=== PATIENT | male | born 1980 | race Caucasian/White ===

== ENCOUNTER 2017-10-20 02:28 | Emergency (ER) | payer BC, OTHER ==
[~2017-10-20] VITALS: Ht 172.7 cm; Wt 100.4 kg
[2017-10-20 02:30] VITALS: Ht 172.7 cm; Wt 100.4 kg
[2017-10-20] MEDS ORDERED: KETOROLAC TROMETHAMINE 30 MG/ML VIAL IV STA (02:48)
[2017-10-20] MEDS ORDERED: ONDANSETRON INJ 2 MG/ML 2 ML VIAL IV STA (02:48)
[2017-10-20] MEDS ORDERED: ACETAMINOPHEN IV 1,000 MG in EMPTY BAG 0 ML IV ONE (03:00)
[2017-10-20] MEDS ORDERED: SODIUM CHLORIDE 0.9% 1000ML 1,000 ML IV ONE (03:00)
[2017-10-20] MEDS ORDERED: ACETAMINOPHEN 1000 MG/100 ML IV IV ONE (03:05)
[2017-10-20 03:23] LABS: BASO % 0.2 %; BASO ABS # 0.03 K/uL (0-0.2); EOS % 1.6 %; EOS ABS # 0.21 K/uL (0-0.5); HEMATOCRIT 43.9 % (42-52); HEMOGLOBIN 15.6 g/dL (14.0-18.0); IG# 0.06 K/uL (0.00-0.02); LYMPH % 9.4 %; LYMPH ABS # 1.24 K/uL (1.2-3.4); MEAN CELL VOLUME 86.1 fL (80-100); MEAN CORPUSCULAR HEMOGLOBIN 30.6 pg (25-34); MEAN CORPUSCULAR HGB CONC 35.5 g/dl (32-36); MEAN PLATELET VOLUME 8.9 fL (7.4-10.4); MONO % 7.4 %; MONO ABS # 0.98 K/uL (0.11-0.59); NEUT % 80.9 %; NEUT ABS # 10.68 K/uL (1.4-6.5); PLATELET COUNT 265 K/uL (130-400); RED CELL DISTRIBUTION WIDTH CV 12.1 % (11.5-14.5); RED CELL DISTRIBUTION WIDTH SD 38.2 fL (36.4-46.3)
[2017-10-20 03:40] LABS: CALCIUM 8.8 mg/dl (8.5-10.1); CREATININE 1.17 mg/dl (0.60-1.40); POTASSIUM 3.7 mmol/L (3.5-5.1)
[2017-10-20 03:42] LABS: INFLUENZA B ANTIGEN Neg for Influ B (NEG)
[2017-10-20 03:51] LABS: TOTAL PROTEIN 7.4 gm/dl (6.4-8.2)
[2017-10-20 04:34] VITALS: TEMP 36.9
[2017-10-20 05:02] VITALS: BP 120/68; PULSE 68; O2SAT 94
--- NOTE | 2017-10-20 05:23 | EMERGENCY ROOM VISIT NOTE ---
History First contact with patient: 02:35 Chief Complaint: ILLNESS Stated Complaint: SICK,NAUSEA,NECK/BACK PAIN,FEVER,HEADACHE History of Present Illness The patient is a 37 year old male who presents to the Emergency Room with several complaints. The patient is complaining of nausea, right-sided back pain , intermittent headache, and fatigue for the past 6 or 7 days. He is also complaining of a fever tonight, prompting his presentation. He has been able to eat and drink as normal but is not complaining of distinct chest pain, chest tightness, shortness of breath, or abdominal pain. No numbness or paresthesias. He states that he travels regularly for work, sometimes 6-8 hours in the car. The patient does not have a history of cardiopulmonary disease. No extremity swelling. He has intermittently been taking Advil and Tylenol without significant improvement of symptoms. He describes his pain as a dull 8/10 that does not radiate. Review of Systems More than 10 systems were reviewed and otherwise negative with the exception of history of present illness. Past Medical/Surgical History No pertinent chronic medical disease Family History No pertinent family history Social History Smoking Status: Never Smoker Occupation Status: employed Current/Historical Medications No Active Prescriptions or Reported Meds Physical Exam Vital Signs Date Time Temp Pulse Resp B/P (MAP) Pulse Ox O2 Delivery O2 Flow Rate FiO2 10/20/17 05:02 68 18 120/68 94 Room Air 10/20/17 04:34 36.9 82 16 119/66 95 Room Air 10/20/17 02:30 37.6 117 16 134/74 95 Room Air Physical Exam VITALS: Vitals are noted on the nurse's note and reviewed by myself. Vital signs stable. GENERAL: Well-developed, well-nourished, white male who appears ill. Patient is cooperative with the examination. HEAD: Normocephalic atraumatic. EARS: External ear normal. External auditory canals clear, tympanic membranes pearly cui without erythema or effusion bilaterally. EYES: Pupils equal round and reactive to light and accommodation. Conjunctivae without injection, sclerae without icterus. Extraocular movements intact. NOSE: Patent, turbinates without inflammation or discharge. MOUTH: Mucous membranes moist. Tonsils are not enlarged. Pharynx without erythema, blood, or exudate. Uvula midline. Airway patent. NECK: Supple without nuchal rigidity. No lymphadenopathy. No thyromegaly. Cervical spine is nontender. Patient is with full range of motion of the neck. He is able to place his chin to his chest and look up at the ceiling without difficulty. HEART: Regular rate and rhythm without murmurs gallops or rubs. LUNGS: Clear to auscultation bilaterally without wheezes, rales or rhonchi. No retractions or accessory muscle use. ABDOMEN: Positive normal bowel sounds x 4. Soft, nontender, without masses or organomegaly. No guarding or rebound tenderness. MUSCULOSKELETAL: No muscle atrophy, erythema, or edema noted. Full range of motion without joint tenderness in all extremities. NEURO: Patient was alert and oriented to person place and time. CN II through XII grossly intact. Deep tendon reflexes 2+ throughout. No focal neurological deficits SKIN: The skin was without rashes, erythema, edema, or bruising. Capillary reflex less than 2 seconds. Medical Decision & Procedures ER Provider Diagnostic Interpretation: Preliminary Findings Only See Final Report For Complete Findings CT HEAD: No acute intracranial hemorrhage. No CT evidence of acute infarct. No mass effect or midline shift or hydrocephalus. Mild chronic sinus disease Laboratory Results 10/20/17 03:10 Red Blood Count 5.10, Mean Corpuscular Volume 86.1, Mean Corpuscular Hemoglobin 30.6, Mean Corpuscular Hemoglobin Concent 35.5, Mean Platelet Volume 8.9, Neutrophils (%) (Auto) 80.9, Lymphocytes (%) (Auto) 9.4, Monocytes (%) (Auto) 7.4, Eosinophils (%) (Auto) 1.6, Basophils (%) (Auto) 0.2, Neutrophils # (Auto) 10.68, Lymphocytes # (Auto) 1.24, Monocytes # (Auto) 0.98, Eosinophils # (Auto) 0.21, Basophils # (Auto) 0.03 10/20/17 03:10 Test 10/20/17 02:48 10/20/17 03:02 10/20/17 03:10 10/20/17 03:11 Influenza Type A Antigen Neg for Influ A (NEG) Influenza Type B Antigen Neg for Influ B (NEG) White Blood Count 13.20 K/uL (4.8-10.8) Red Blood Count 5.10 M/uL (4.7-6.1) Hemoglobin 15.6 g/dL (14.0-18.0) Hematocrit 43.9 % (42-52) Mean Corpuscular Volume 86.1 fL (80-100) Mean Corpuscular Hemoglobin 30.6 pg (25-34) Mean Corpuscular Hemoglobin Concent 35.5 g/dl (32-36) Platelet Count 265 K/uL (130-400) Mean Platelet Volume 8.9 fL (7.4-10.4) Neutrophils (%) (Auto) 80.9 % Lymphocytes (%) (Auto) 9.4 % Monocytes (%) (Auto) 7.4 % Eosinophils (%) (Auto) 1.6 % Basophils (%) (Auto) 0.2 % Neutrophils # (Auto) 10.68 K/uL (1.4-6.5) Lymphocytes # (Auto) 1.24 K/uL (1.2-3.4) Monocytes # (Auto) 0.98 K/uL (0.11-0.59) Eosinophils # (Auto) 0.21 K/uL (0-0.5) Basophils # (Auto) 0.03 K/uL (0-0.2) RDW Standard Deviation 38.2 fL (36.4-46.3) RDW Coefficient of Variation 12.1 % (11.5-14.5) Immature Granulocyte % (Auto) 0.5 % Immature Granulocyte # (Auto) 0.06 K/uL (0.00-0.02) Anion Gap 8.0 mmol/L (3-11) Est Creatinine Clear Calc Drug Dose 101.2 ml/min Estimated GFR () 93.1 Estimated GFR (Non- 80.3 BUN/Creatinine Ratio 10.9 (10-20) Calcium Level 8.8 mg/dl (8.5-10.1) Total Bilirubin 0.5 mg/dl (0.2-1) Aspartate Amino Transf (AST/SGOT) 13 U/L (15-37) Alanine Aminotransferase (ALT/SGPT) 35 U/L (12-78) Alkaline Phosphatase 55 U/L (45-117) Total Protein 7.4 gm/dl (6.4-8.2) Albumin 4.0 gm/dl (3.4-5.0) Globulin 3.4 gm/dl (2.5-4.0) Albumin/Globulin Ratio 1.2 (0.9-2) Lipase 137 U/L (73-393) Thyroid Stimulating Hormone (TSH) 1.870 uIu/ml (0.300-4.500) Monoscreen NEG (NEG) Bedside D-Dimer 107 ng/mlFEU (0-450) Bedside Troponin I < 0.030 ng/ml (0-0.045) Test 10/20/17 03:14 Bedside Lactic Acid Venous 1.91 mmol/L (0.90-1.70) Medications Administered Medications (Trade) Dose Ordered Sig/Cristy Route Start Time Stop Time Status Last Admin Dose Admin Sodium Chloride 1,000 ml @ 999 mls/hr Q1H1M ONCE IV 10/20/17 03:00 10/20/17 04:00 DC 10/20/17 03:11 999 MLS/HR Ketorolac Tromethamine (Toradol Inj) 30 mg NOW STAT IV 10/20/17 02:48 10/20/17 02:56 DC 10/20/17 03:12 30 MG Ondansetron HCl (Zofran Inj) 4 mg NOW STAT IV 10/20/17 02:48 10/20/17 02:56 DC 10/20/17 03:11 4 MG Acetaminophen (Ofirmev Iv) 1,000 mg STK-MED ONCE IV 10/20/17 03:05 10/20/17 03:06 DC 10/20/17 03:13 1,000 MG ED Course Physical exam and history were performed. Nursing notes, EMR, and Medication List were personally reviewed. Patient appears to have vague flulike symptoms over the past week that seemed to be worsened today. The patient appears mildly ill on exam, but not toxic. IV access was established and labs were obtained. The patient was hydrated and medicated as above. Lactic acid and cultures were gathered. Influenza swab was performed. Urine collected. The patient's blood work is as above and was reviewed. He does have a slightly elevated white blood count of 13,000. He does not have a gross anemia or significant electrolyte imbalance. His lactic acid is just minimally elevated at 1.9 with cultures pending. Influenza swab is negative. Urine is without obvious signs of infection. Chest x-ray was reviewed by myself and my attending without obvious pneumonia or other significant findings. I did perform a CT scan of the head as the patient is complaining of head pain with his symptoms, and this also returned without significant acute findings. On reevaluation the patient felt significantly improved after hydration, Toradol , Tylenol, and Zofran. He clinically appears much more comfortable, and is currently rating his pain a 4/10. Much of his discomfort remains in his head and neck however. I spent a lengthy amount of time discussing the possibility that the patient's symptoms may represent meningitis, and explained that it would be reasonable to perform a lumbar puncture. After lengthy discussion regarding the risks and benefits of the procedure, the patient expressed desire to defer lumbar puncture. He understands that his symptoms certainly worsen without appropriate diagnosis, and was certainly invited back to the ER if he changes his mind regarding the study. Overall the patient appears ready for discharge home. I am not able to appreciate a distinct source of infection, and his symptoms certainly could be viral in etiology. He has an appointment with his primary care physician in about 8 hours, and I feel it is reasonable that he keep this appointment. He will need close follow-up to ensure improvement of his symptoms. I do recommend a low threshold for return to the ER, at which point lumbar puncture should be considered again. The patient voiced understanding of this and appears reasonable. He rated his discomfort a 3/10 at the time of departure. The chart was completed utilizing [employer] Speech Voice Recognition Software. Grammatical errors, random word insertions, pronoun errors, and incomplete sentences are an occasional consequence of this system due to software limitations, ambient noise, and hardware issues. Any formal questions or concerns about the content, text, or information contained within the body of this dictation should be directly addressed to the provider for clarification. . Medical Decision Differential diagnosis: Etiologies such as viral syndrome, otitis, pharyngitis, pneumonia, influenza, meningitis, urinary tract infection, sepsis, bacteremia, as well as others were entertained. Impression Primary Impression: Flu-like symptoms Departure Information Dispostion Home / Self-Care Condition FAIR Prescriptions No Active Prescriptions or Reported Meds Forms HOME CARE DOCUMENTATION FORM, IMPORTANT VISIT INFORMATION Patient Instructions My [facility] Additional Instructions You were seen and evaluated today on an emergency basis only. This is not a substitute for, or an effort to provide, complete comprehensive medical care. It is not possible to recognize and treat all injuries or illnesses in a single emergency department visit. For this reason it is recommended that you followup with your primary care physician today as scheduled. For baseline pain relief you may alternate ibuprofen and acetaminophen every 4 hours for pain control. Take 600 mg ibuprofen (Advil) and then 4 hours later take 1000 mg acetaminophen (Tylenol). Do not take more than 3000 mg acetaminophen in a single day. Drink plenty of fluids and remain well hydrated. You are welcome to return to the emergency department anytime with new, worsening, or concerning symptoms.
--- NOTE | 2017-10-20 06:31 | DIAGNOSTIC IMAGING REPORT ---
CT OF THE HEAD WITHOUT CONTRAST CLINICAL HISTORY: Headache. Fever. COMPARISON STUDY: No previous studies for comparison. CT DOSE: 614.27 mGy.cm TECHNIQUE: Helical axial images of the head were obtained without IV contrast. Automated exposure control was utilized for the study. A dose lowering technique was utilized adhering to the principles of ALARA. FINDINGS: No acute intracranial hemorrhage, midline shift or mass effect is present. Ventricular system is normal. Basilar cisterns are patent. There are no extra-axial collections. Padilla-white differentiation is maintained. There are no findings to suggest acute dural sinus thrombosis or acute infarct. There are no significant calvarial abnormalities. Mastoid air cells are clear. There is moderate mucosal thickening of the ethmoid sinuses. IMPRESSION: 1. No acute intracranial findings. 2. Moderate ethmoid sinus mucosal thickening. Electronically signed by: Florencio Quiles M.D. 10/20/2017 6:30 AM Dictated Date/Time: 10/20/2017 6:29 AM
--- NOTE | 2017-10-20 06:42 | DIAGNOSTIC IMAGING REPORT ---
CHEST 2 VIEWS ROUTINE HISTORY: 37 years-old Male Fever. Acute fever with cough COMPARISON: None available TECHNIQUE: PA and lateral views of the chest FINDINGS: Cardiomediastinal and hilar silhouettes are within normal limits. No pneumothorax, pleural effusion, focal airspace consolidation or overt pulmonary edema. Bones of the chest appear grossly intact. IMPRESSION: No acute process. The above report was generated using voice recognition software. It may contain grammatical, syntax or spelling errors. Electronically signed by: Dequan Rico M.D. 10/20/2017 6:41 AM Dictated Date/Time: 10/20/2017 6:40 AM
== END 2017-10-20 05:18 | disposition home or self-care (01) ==
LOC: C.EDB 02:29
DX: R11.0 Nausea (principal); M54.9 Dorsalgia, unspecified; R51 Headache; R53.83 Other fatigue; R50.9 Fever, unspecified